=== PATIENT | female | born 1940 | race Caucasian/White ===

== ENCOUNTER 2022-02-20 12:46 | Emergency (ER) | payer MEDICARE ==
[2022-02-20 15:03] LABS: HEMOGLOBIN 10.1 gm/dl (12.3-15.3); RED BLOOD COUNT 3.55 M/UL (4.00-5.10); WHITE BLOOD COUNT 11.8 K/UL (4.5-11.0)
[2022-02-20] MEDS ORDERED: CEFUROXIME500 MG PO (16:50)
== END 2022-02-20 17:03 | disposition home or self-care (01) ==
LOC: ER1 12:46
PROVIDERS: Preventive Medicine Occupational Medicine
DX: N39.0 Urinary tract infection, site not specified (principal); E86.0 Dehydration
CPT/HCPCS: 51701; 70450; 71045; 80053; 80178; 81001; 82009; 82140; 83690; 85025; 85652; 86140; 87077; 87086; 87186; 93005; 99285; J0696